=== PATIENT | female | born 1940 | race Caucasian/White ===

== ENCOUNTER 2022-06-08 15:37 | Inpatient (IN) | payer MEDICARE ==
[~2022-06-08] VITALS: Ht 170.2 cm; Wt 57.2 kg
[2022-06-08 16:41] LABS: HEMOGLOBIN 11.9 gm/dl (12.3-15.3); RED BLOOD COUNT 4.19 M/UL (4.00-5.10)
[2022-06-08] MEDS ORDERED: ALENDRONATE SOD70 MG PO (17:16)
[2022-06-08] MEDS ORDERED: BUSPIRONE HCL5 MG PO (17:17)
[2022-06-08] MEDS ORDERED: ATORVASTATIN CA20 MG PO (17:17)
[2022-06-08] MEDS ORDERED: CYANOCOBAL1000 MCG/1 INJ (17:18)
[2022-06-08] MEDS ORDERED: CARVEDILOL3.125 MG PO (17:18)
[2022-06-08] MEDS ORDERED: ARTHRITIS PAIN150 GM TOP (17:19)
[2022-06-08] MEDS ORDERED: DIGOXIN125 MCG PO (17:20)
[2022-06-08] MEDS ORDERED: LEVOTHYROXINE50 MCG PO (17:21)
[2022-06-08] MEDS ORDERED: FUROSEMIDE40 MG PO (17:21)
[2022-06-08] MEDS ORDERED: MELATONIN3 MG PO (17:22)
[2022-06-08] MEDS ORDERED: LOSARTAN POTASS50 MG PO (17:22)
[2022-06-08] MEDS ORDERED: NITROGLYCERIN0.4 MG SL (17:23)
[2022-06-08] MEDS ORDERED: PROTONIX40 MG PO (17:24)
[2022-06-08] MEDS ORDERED: POTASSIUM CHLO10 ME1 PO (17:25)
[2022-06-08] MEDS ORDERED: WARFARIN SODIUM3 MG PO (17:26)
[2022-06-08] MEDS ORDERED: SPIRONOLACTONE25 MG PO (17:26)
[2022-06-09 07:00] LABS: HEMOGLOBIN 10.9 gm/dl (12.3-15.3); RED BLOOD COUNT 3.89 M/UL (4.00-5.10); WHITE BLOOD COUNT 10.4 K/UL (4.5-11.0)
== END 2022-06-15 14:15 | disposition expired | DRG 291 ==
LOC: CCU 15:37 → M/S 06-10 19:45
PROVIDERS: Internal Medicine Pulmonary Disease; ADMIT Internal Medicine
PROC: 5A09457 Assistance with Respiratory Ventilation, 24-96 Consecutive Hours, Continuous Positive Airway Pressure (ICD-10-PCS; principal; 2022-06-08)
DX: I13.0 Hypertensive heart and chronic kidney disease with heart failure and stage 1 through stage 4 chronic kidney disease, or unspecified chronic kidney disease (principal); Z51.5 Encounter for palliative care; R53.81 Other malaise; I50.23 Acute on chronic systolic (congestive) heart failure; J96.21 Acute and chronic respiratory failure with hypoxia; N17.9 Acute kidney failure, unspecified; I48.20 Chronic atrial fibrillation, unspecified; Z66 Do not resuscitate; J40 Bronchitis, not specified as acute or chronic; I25.10 Atherosclerotic heart disease of native coronary artery without angina pectoris; E03.9 Hypothyroidism, unspecified; J44.9 Chronic obstructive pulmonary disease, unspecified; E11.22 Type 2 diabetes mellitus with diabetic chronic kidney disease; N18.30 Chronic kidney disease, stage 3 unspecified; I25.5 Ischemic cardiomyopathy; E87.5 Hyperkalemia; I08.1 Rheumatic disorders of both mitral and tricuspid valves; L89.152 Pressure ulcer of sacral region, stage 2; Z95.1 Presence of aortocoronary bypass graft; Z87.891 Personal history of nicotine dependence; Z79.01 Long term (current) use of anticoagulants; Z95.810 Presence of automatic (implantable) cardiac defibrillator; Z87.19 Personal history of other diseases of the digestive system; Z98.42 Cataract extraction status, left eye; Z98.41 Cataract extraction status, right eye; Z98.51 Tubal ligation status; Z82.49 Family history of ischemic heart disease and other diseases of the circulatory system
CPT/HCPCS: 36415; 36600; 71045; 80053; 82550; 82553; 82803; 82962; 83036; 83735; 83880; 84484; 85025; 85610; 85730; 87205; 93005; 94640; 94660; 94664; 94760; J1250; J1940; J2270; J2405; J3475